=== PATIENT | female | born 1960 | race Caucasian/White ===

== ENCOUNTER 2017-08-01 10:51 | Emergency (ER) | payer SELFPAY ==
[~2017-08-01] VITALS: Ht 152.4 cm; Wt 68.0 kg
[2017-08-01 10:54] VITALS: BP 167/79; PULSE 74; RESP 16; TEMP 97.8; O2SAT 98
--- NOTE | 2017-08-01 11:09 | PD ---
HPI Chief Complaint: Neuro Symptoms/ Deficits Time Seen by Provider: 11:04 Travel History International Travel<30 days: No Contact w/Intl Traveler<30days: No Traveled to known affect area: No History of Present Illness HPI Patient presents with reports of intermittent bilateral hand and feet numbness for approximately 6 months. States she is being worked up for MS. Reports difficulty with balance. Reports a fall yesterday with right shoulder and cervical spine pain. Reports abrasions to her right neck. Unable to recall tetanus. Denies any new chest pain shortness of breath urinary or bowel symptoms. PFSH Social History Tobacco Use: No Allergies-Medications (Allergen,Severity, Reaction): Coded Allergies: Sulfa (Sulfonamide Antibiotics) (Verified Allergy, Unknown, 08/01/17) Reported Meds & Prescriptions Reported Meds & Active Scripts Active No Active Prescriptions or Reported Medications Review of Systems General / Constitutional: No: Fever Eyes: No: Visual changes HENT: No: Headaches Cardiovascular: No: Chest Pain or Discomfort Respiratory: No: Shortness of Breath Gastrointestinal: No: Abdominal Pain Genitourinary: No: Dysuria Musculoskeletal: Positive: Arthralgias, Limited ROM, Pain Skin: No Rash Neurologic: No: Weakness Psychiatric: No: Depression Endocrine: No: Polydipsia Hematologic/Lymphatic: No: Easy Bruising Physical Exam Narrative GENERAL: Well-nourished, well-developed patient. SKIN: Focused skin assessment warm/dry. HEAD: Normocephalic. EYES: No scleral icterus. No injection or drainage. NECK: Supple, trachea midline. No JVD or lymphadenopathy. Right sided abrasions noted healing well without cellulitic change CARDIOVASCULAR: Regular rate and rhythm without murmurs, gallops, or rubs. RESPIRATORY: Breath sounds equal bilaterally. No accessory muscle use. GASTROINTESTINAL: Abdomen soft, non-tender, nondistended. MUSCULOSKELETAL: No cyanosis, or edema. BACK: Nontender without obvious deformity. No CVA tenderness. Examination the cervical spine reveals midline tenderness with bilateral paraspinous pain good range of motion Examination the right shoulder reveals good range of motion with discomfort Data Data Last Documented VS Vital Signs Date Time Temp Pulse Resp B/P (MAP) Pulse Ox O2 Delivery O2 Flow Rate FiO2 08/01/17 10:54 97.8 74 16 167/79 (108) 98 Orders Orders Tetanus/Diphtheria Tox Adult (Tetanus/Di (08/01/17 11:15) Spine, Cervical - Ltd (Ap&Lat) (08/01/17 ) Shoulder, Limited(2vws) (08/01/17 ) Splint Or Brace Apply/Monitor (08/01/17 11:55) MDM Medical Decision Making Medical Screen Exam Complete: Yes Emergency Medical Condition: Yes Differential Diagnosis Right shoulder fracture, right shoulder strain, cervical spine strain, cervical spine fracture, skin abrasions Narrative Course Assessment and plan discussed with patient at bedside. Patient received tetanus. Last 72 hours Impressions Shoulder X-Ray 08/01/17 0000 Signed Impressions: Service Date/Time: Tuesday, August 01, 2017 11:16 - CONCLUSION: Unremarkable limited right shoulder series. Ajay Alanis MD Cervical Spine X-Ray 08/01/17 0000 Signed Impressions: Service Date/Time: Tuesday, August 01, 2017 11:16 - CONCLUSION: 1. Moderate severity bony degenerative findings of the cervical spine. 2. No evidence of fracture. Ajay Alanis MD Diagnosis Primary Impression: Right shoulder strain Qualified Codes: S46.911A - Strain of unspecified muscle, fascia and tendon at shoulder and upper arm level, right arm, initial encounter Additional Impression: Degenerative joint disease of cervical spine Qualified Codes: M47.812 - Spondylosis without myelopathy or radiculopathy, cervical region Patient Instructions: General Instructions Additional Instructions: Slinging right arm for comfort, gentle range of motion exercises for cervical spine and right shoulder, pain medication as prescribed, encourage nonsteroidal anti-inflammatories, encouraged general wound care for abrasions on her right neck. Encouraged follow-up with PCP. Encouraged to use a cane regularly. Return to emergency with any onset of new symptoms. Med/Other Pt SpecificInfo: Prescription(s) given Scripts Hydrocodone-Acetaminophen (Hydrocodone-Acetaminophen) 5-325 mg Tab 1 TAB PO Q6H Y for PAIN, #15 TAB 0 Refills Prov: Modesto Pang MD 08/01/17 Disposition: 01 DISCHARGE HOME Condition: Good Modesto Pang MD Aug 01, 2017 11:09
[2017-08-01] MEDS ORDERED: TETANUS/DIPHTHERIA TOXOID ADULT 0.5 ML VIAL IM ONE (11:15)
--- NOTE | 2017-08-01 11:38 | RADRPT ---
EXAM DATE/TIME: 08/01/2017 11:16 [facility] COMPARISON: No previous studies available for comparison. INDICATIONS : Fell, complains of neck pain. MEDICAL HISTORY : None. SURGICAL HISTORY : None. ENCOUNTER: Initial ACUITY: 4 - 6 days PAIN SCORE: 6/10 LOCATION: Right cervical spine FINDINGS: 4 views of the cervical spine. Moderate-sized endplate osteophytes and moderate severity intervertebr al disc narrowing at C5-6. Moderate-sized endplate osteophytes and mild intervertebral disc narrowing at C6-7. Bone alignment within normal limits. No evidence of fracture. CONCLUSION: 1. Moderate severity bony degenerative findings of the cervical spine. 2. No evidence of fracture. Ajay Alanis MD on August 01, 2017 at 11:35 Board Certified Radiologist. This report was verified electronically.
--- NOTE | 2017-08-01 11:39 | RADRPT ---
EXAM DATE/TIME: 08/01/2017 11:16 [facility] COMPARISON: No previous studies available for comparison. INDICATIONS : Fell, complains of right shoulder pain. MEDICAL HISTORY : None. SURGICAL HISTORY : None. ENCOUNTER: Initial ACUITY: 4 - 6 days PAIN SCORE: 6/10 LOCATION: Right shoulder FINDINGS: 2 views right shoulder. No evidence of bowel dilatation. No free air or free fluid. Appendix within n ormal limits. Glenohumeral joint and acromioclavicular joint within normal limits. CONCLUSION: Unremarkable limited right shoulder series. Ajay Alanis MD on August 01, 2017 at 11:37 Board Certified Radiologist. This report was verified electronically.
[2017-08-01 11:56] VITALS: BP 118/73; PULSE 78; RESP 18; O2SAT 98
[2017-08-01] MEDS ORDERED: HYDR-3516 PO (11:56)
== END 2017-08-01 12:24 | disposition home or self-care (01) ==
LOC: PHED 10:51
DX: S46.911A Strain of unspecified muscle, fascia and tendon at shoulder and upper arm level, right arm, initial encounter (principal); M47.812 Spondylosis without myelopathy or radiculopathy, cervical region; W19.XXXA Unspecified fall, initial encounter
CPT/HCPCS: 72040; 73030; 90471; 90714

== ENCOUNTER 2017-12-28 09:37 | Observation (INO) | payer OTHER ==
[~2017-12-28] VITALS: Ht 152.4 cm; Wt 65.0 kg
[~2017-12-28 09:37] MED LIST: HYDR-3516 PO
[2017-12-28 09:44] VITALS: BP 172/75; PULSE 64; RESP 15; TEMP 99; O2SAT 100
[2017-12-28 10:28] VITALS: BP 150/65; PULSE 64
--- NOTE | 2017-12-28 10:41 | PD ---
HPI Chief Complaint: Cardiac Complaint Time Seen by Provider: 10:26 Travel History International Travel<30 days: No Contact w/Intl Traveler<30days: No Traveled to known affect area: No History of Present Illness HPI The patient was seen and examined in the presence of the nurse. This patient complains of chest pain. She had 3 separate spells today. They last about 5 minutes and resolved. They are not exertional. She describes a central sternal tightness. Also discomfort that radiates toward the back. No injury. No fever or cough. Symptom severity is moderate during the spell that resolves on its own. No alleviating factors. No exacerbating factors. No personal history of cardiac disease. She reports having a negative stress test 6 years ago but no workup since. [facility] Past Medical History Hypertension: Yes (NO MEDS) Musculoskeletal: Yes (PAIN IN HANDS AND FEET FOR TWO YEARS) ?: Not Past Surgical History Genitourinary Surgery: Yes (BLADDER SLING REMOVED) Other Surgery: Yes (BREAST IMPLANTS, IR BLOOD CLOT REMOVAL) Social History Alcohol Use: Yes (FEW X WEEKLY) Tobacco Use: Yes (1/2 PPD) Substance Use: No Allergies-Medications (Allergen,Severity, Reaction): Coded Allergies: Sulfa (Sulfonamide Antibiotics) (Verified Allergy, Unknown, 12/28/17) Reported Meds & Prescriptions Reported Meds & Active Scripts Active No Active Prescriptions or Reported Medications Review of Systems General / Constitutional: No: Fever Eyes: No: Visual changes HENT: No: Headaches Cardiovascular: Positive: Chest Pain or Discomfort Respiratory: No: Shortness of Breath Gastrointestinal: No: Abdominal Pain Genitourinary: No: Dysuria Musculoskeletal: No: Pain Skin: No Rash Neurologic: No: Weakness Psychiatric: No: Depression Endocrine: No: Polydipsia Hematologic/Lymphatic: No: Easy Bruising Physical Exam Narrative GENERAL: Well-nourished, well-developed patient in no apparent distress. SKIN: Focused skin assessment reveals no rash and nodules. Skin is Warm and dry. HEAD: Atraumatic. Normocephalic. EYES: Pupils equal and round. No scleral icterus. No injection or drainage. ENT: No nasal bleeding or discharge. Mucous membranes pink and moist. NECK: Trachea midline. No JVD. CARDIOVASCULAR: Regular rate and rhythm. No murmur appreciated. RESPIRATORY: No accessory muscle use. Clear to auscultation. Breath sounds equal bilaterally. GASTROINTESTINAL: Abdomen soft, non-tender, nondistended. Hepatic and splenic margins not palpable. MUSCULOSKELETAL: No obvious deformities. No clubbing. No cyanosis. No edema. NEUROLOGICAL: Awake and alert. No obvious cranial nerve deficits. Motor grossly within normal limits. Normal speech. PSYCHIATRIC: Appropriate mood and affect; insight and judgment normal. Data Data Last Documented VS Vital Signs Date Time Temp Pulse Resp B/P (MAP) Pulse Ox O2 Delivery O2 Flow Rate FiO2 12/28/17 10:28 64 150/65 (93) 12/28/17 09:44 99.0 15 100 Room Air Orders Orders Electrocardiogram (12/28/17 10:35) Basic Metabolic Panel (Bmp) (12/28/17 10:35) Ckmb (Isoenzyme) Profile (12/28/17 10:35) Complete Blood Count With Diff (12/28/17 10:35) Magnesium (Mg) (12/28/17 10:35) Prothrombin Time / Inr (Pt) (12/28/17 10:35) Act Partial Throm Time (Ptt) (12/28/17 10:35) Troponin I (12/28/17 10:35) Chest, Single Ap (12/28/17 10:35) Ecg Monitoring (12/28/17 10:35) Iv Access Insert/Monitor (12/28/17 10:35) Oximetry (12/28/17 10:35) Aspirin (Aspirin) (12/28/17 10:45) Sodium Chloride 0.9% Flush (Ns Flush) (12/28/17 10:45) Labs Laboratory Tests Test 12/28/17 10:40 White Blood Count 9.2 TH/MM3 Red Blood Count 4.97 MIL/MM3 Hemoglobin 15.5 GM/DL Hematocrit 45.7 % Mean Corpuscular Volume 92.0 FL Mean Corpuscular Hemoglobin 31.2 PG Mean Corpuscular Hemoglobin Concent 33.9 % Red Cell Distribution Width 13.0 % Platelet Count 242 TH/MM3 Mean Platelet Volume 9.3 FL Neutrophils (%) (Auto) 60.3 % Lymphocytes (%) (Auto) 29.6 % Monocytes (%) (Auto) 5.7 % Eosinophils (%) (Auto) 3.3 % Basophils (%) (Auto) 1.1 % Neutrophils # (Auto) 5.6 TH/MM3 Lymphocytes # (Auto) 2.7 TH/MM3 Monocytes # (Auto) 0.5 TH/MM3 Eosinophils # (Auto) 0.3 TH/MM3 Basophils # (Auto) 0.1 TH/MM3 CBC Comment DIFF FINAL Differential Comment Prothrombin Time 9.7 SEC Prothromb Time International Ratio 1.0 RATIO Activated Partial Thromboplast Time 24.8 SEC Blood Urea Nitrogen 14 MG/DL Creatinine 0.82 MG/DL Random Glucose 90 MG/DL Calcium Level 9.4 MG/DL Magnesium Level 2.1 MG/DL Sodium Level 140 MEQ/L Potassium Level 4.5 MEQ/L Chloride Level 109 MEQ/L Carbon Dioxide Level 26.4 MEQ/L Anion Gap 5 MEQ/L Estimat Glomerular Filtration Rate 72 ML/MIN Total Creatine Kinase 94 U/L Troponin I LESS THAN 0.02 NG/ML MDM Medical Decision Making Medical Screen Exam Complete: Yes Emergency Medical Condition: Yes Medical Record Reviewed: Yes Differential Diagnosis Differential diagnosis includes MD, angina, pericarditis, pleurisy, GERD, anxiety. Narrative Course I have reviewed the patient's electronic medical record. I reviewed her EKG which is normal I reviewed her chest x-ray which is normal Labs sent I gave her an aspirin Patient has multiple risk factors for CAD including hypertension and cigarette smoking and family history of CAD. I am planning to make her 23 hour observation in the chest pain center to rule out cardiac cause of her symptoms. She is agreeable. CK is normal Troponin is normal CBC and metabolic studies are normal Diagnosis Primary Impression: Chest pain Qualified Codes: R07.9 - Chest pain, unspecified Additional Impressions: Hypertension Qualified Codes: I10 - Essential (primary) hypertension Smoker Admitting Information Admitting Physician Requests: Observation Scripts No Active Prescriptions or Reported Igor Maciel MD Dec 28, 2017 10:41
[2017-12-28] MEDS ORDERED: SODIUM CHLORIDE 0.9% FLUSH 10 ML FLUSH IVF PRN (10:45)
[2017-12-28] MEDS ORDERED: ASPIRIN 325 MG TAB PO ONE (10:45)
--- NOTE | 2017-12-28 11:03 | RADRPT ---
EXAM DATE/TIME: 12/28/2017 10:40 [facility] COMPARISON: No previous studies available for comparison. INDICATIONS : Chest pain and coughing. MEDICAL HISTORY : Hypertension. History of blood clots. SURGICAL HISTORY : Breast implants. ENCOUNTER: Initial ACUITY: 1 day PAIN SCORE: 0/10 LOCATION: Bilateral chest FINDINGS: A single view of the chest demonstrates the lungs to be symmetrically aerated without evidence of mas s, infiltrate or effusion. The cardiomediastinal contours are unremarkable. Osseous structures are intact. CONCLUSION: No acute disease. Wilton Monteiro MD FACR on December 28, 2017 at 11:01 Board Certified Radiologist. This report was verified electronically.
[2017-12-28 11:18] LABS: AUTOMATED NEUTROPHIL # 5.6 TH/MM3 (1.8-7.7); BASOPHIL # 0.1 TH/MM3 (0-0.2); BASOPHIL % 1.1 % (0.0-2.0); EOSINOPHIL # 0.3 TH/MM3 (0-0.4); EOSINOPHIL % 3.3 % (0.0-4.0); HEMATOCRIT 45.7 % (35.0-46.0); HEMOGLOBIN 15.5 GM/DL (11.6-15.3); LYMPH % 29.6 % (9.0-44.0); LYMPHOCYTE # 2.7 TH/MM3 (1.0-4.8); MEAN CORPUSCULAR HEMOGLOBIN 31.2 PG (27.0-34.0); MEAN CORPUSCULAR HGB CONC 33.9 % (32.0-36.0); MEAN PLATELET VOLUME 9.3 FL (7.0-11.0); MONO % 5.7 % (0.0-8.0); MONOCYTE # 0.5 TH/MM3 (0-0.9); NEUT % 60.3 % (16.0-70.0); PLATELET COUNT 242 TH/MM3 (150-450); PROTHROMBIN TIME - PATIENT 9.7 SEC (9.8-11.6); RED BLOOD COUNT 4.97 MIL/MM3 (4.00-5.30); WHITE BLOOD COUNT 9.2 TH/MM3 (4.0-11.0)
[2017-12-28 11:48] LABS: BICARBONATE 26.4 MEQ/L (21.0-32.0); BLOOD UREA NITROGEN 14 MG/DL (7-18); CALCIUM 9.4 MG/DL (8.5-10.1); CHLORIDE 109 MEQ/L (98-107); CREATININE 0.82 MG/DL (0.50-1.00); GLOMERULAR FILTRATION RATE 72 ML/MIN (>89); GLUCOSE,RANDOM 90 MG/DL (74-106); MAGNESIUM 2.1 MG/DL (1.5-2.5); SODIUM (NA) 140 MEQ/L (136-145); TROPONIN I LESS THAN 0.02 NG/ML (0.02-0.05)
[2017-12-28] MEDS ORDERED: ONDANSETRON HCL 4 MG/2 ML VIAL IV PUSH PRN (13:00)
[2017-12-28] MEDS ORDERED: ACETAMINOPHEN 500 MG CPLT PO PRN (13:00)
[2017-12-28] MEDS ORDERED: NITROGLYCERIN 0.4 MG SL 25 TABS/BTL SL PRN (13:00)
[2017-12-28 13:28] VITALS: O2SAT 100
--- NOTE | 2017-12-28 14:06 | HHI.HP ---
HPI Primary Care Physician Rosalie Ott MD Chief Complaint Chest pain History of Present Illness 56-year-old female with history of DVT's and current smoker presents emergency room for further evaluation of chest pain. Onset 0800, while sitting at desk. Location substernal. Characterized as squeezing. Radiation between shoulder blades. Duration 2-3 minutes. Discomfort came on quick, resolved gradually. Associated symptoms of shortness of breath, diaphoresis, and it hurt to take a deep breath and to move. Denied nausea or vomiting. Second episode occurred 0845am, nonexertional, reporting second episode not as severe as first. No known precipitating or relieving factors. Denies any current chest discomfort. Endorses similar chest pain episode August 2017, while visiting daughter in [place]. Duration of chest pain approx. 20-25 minutes. Pain was severe enough, EMS was called. ER recommended staying overnight for further evaluation. She declined due to lack of medical insurance. No further chest apin episodes until this morning. Review of Systems General: Fatigue x1 week, otherwise as been in her general state of health. No weakness, fever, chills, recent illness, or change in appetite. History of x2 DVT approximately 10 years ago. One DVT in abdomen after bladder sling removal and second DVT in lungs after breast implants removed. Declines ever having further testing to determine cause of blood clots, states "it was recommended but I declined testing." HEENT: x2 months of sore throat, right ear pain, and hoarseness in morning or after long periods of vocal strain. Awaiting ENT referral. No TRIMBLE, no vision changes, no nasal congestion or drainage CV: As stated above. No current chest pain or pressure. No palpitations, intermittent leg pain, or dizziness. RESP: No SOB, cough, wheeze, asthma, or recent aspiratory infection. Current smoker. GI: No nausea, vomiting, bowel changes, diarrhea, constipation, pain, distention , melena, or blood in the stool. No unintentional weight gain or weight loss : No dysuria, urgency, frequency, or history of kidney stones EXT: No lower leg edema, no paraesthesias. Unsure, but thinks she has been told she has peripheral vascular disease. No history of lower extremities DVT. MS: No discomfort, recent injury, or change in ROM NEURO: No change in memory, difficulty with balance, LOC, motor/sensory deficits PSYCH: No anxiety, depression, suicidal ideation SKIN: No rashes, no concerning lesions Past Family Social History Allergies: Coded Allergies: Sulfa (Sulfonamide Antibiotics) (Verified Allergy, Unknown, 12/28/17) Past Medical History DVT, PE (DVT and PE occurred at different times), remote history of hypertension (states only being on medication for a short time) Past Surgical History Bladder sling removal, Breast implants removed, interventional radiology thrombectomy Reported Medications Reported Meds & Active Scripts Active No Active Prescriptions or Reported Medications Active Ordered Medications Current Medications Medications (Trade) Dose Ordered Sig/Osmin Route Start Time Stop Time Status Last Admin (NS Flush) 2 ml UNSCH PRN IVF 12/28/17 10:45 (NS Flush) 2 ml BID IV FLUSH 12/28/17 21:00 UNV (Tylenol) 500 mg Q4H PRN PO 12/28/17 13:00 UNV (Zofran Inj) 4 mg Q6H PRN IV PUSH 12/28/17 13:00 UNV (Nitrostat Sl) 0.4 mg Q5M PRN SL 12/28/17 13:00 UNV (Aspirin) 325 mg DAILY PO 12/29/17 09:00 UNV Family History Mother first [place] age 51. age 67 from CHF. Social History No known hypertension, hyperlipidemia, diabetes, coronary artery disease. Current smoker one half pack daily. Pack year history between 21-42 years. Few alcohol drinks weekly. Denies any illegal drug use. . 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 Past cardiac testing Remote exercise cardiac testing 5 years ago part of routine annual. Physical Exam Vital Signs Vital Signs Date Time Temp Pulse Resp B/P (MAP) Pulse Ox O2 Delivery O2 Flow Rate FiO2 12/28/17 13:28 100 21 12/28/17 10:28 64 150/65 (93) 12/28/17 09:44 99.0 64 15 172/75 (107) 100 Room Air 12/28/17 09:44 Room Air Physical Exam GENERAL: Alert WN, WD, NAD, pleasant, female HEAD: NC, AT EYES: Sclera clear, conjunctiva without injection, pupils equal and round ENT: Mucous membranes pink and moist CV: RRR, without murmur, rub, gallop, no JVD, S1-S2 no S3-S4. No carotid or femoral bruits. RESP: Clear lungs throughout bilateral, no crackles, wheeze, rhonchi, symmetrical chest rise, nonlabored, able to speak in full sentences ABD: Soft, NT, ND, no masses, positive bowel tones BACK: No scoliosis EXT: Pulses +2x4, no dependent edema MS: Normal tone x4 extremities, nontender, no obvious deformities, full range of motion NEURO: CN II through CN XII grossly intact, motor strength 5/5 PSYCH: A+O x3, pleasant affect, appropriate speech, mood, insight and judgment SKIN: Normal turgor, normal texture, no lesions, no rashes Laboratory Laboratory Tests Test 12/28/17 10:40 White Blood Count 9.2 Red Blood Count 4.97 Hemoglobin 15.5 Hematocrit 45.7 Mean Corpuscular Volume 92.0 Mean Corpuscular Hemoglobin 31.2 Mean Corpuscular Hemoglobin Concent 33.9 Red Cell Distribution Width 13.0 Platelet Count 242 Mean Platelet Volume 9.3 Neutrophils (%) (Auto) 60.3 Lymphocytes (%) (Auto) 29.6 Monocytes (%) (Auto) 5.7 Eosinophils (%) (Auto) 3.3 Basophils (%) (Auto) 1.1 Neutrophils # (Auto) 5.6 Lymphocytes # (Auto) 2.7 Monocytes # (Auto) 0.5 Eosinophils # (Auto) 0.3 Basophils # (Auto) 0.1 CBC Comment DIFF FINAL Differential Comment Prothrombin Time 9.7 Prothromb Time International Ratio 1.0 Activated Partial Thromboplast Time 24.8 Blood Urea Nitrogen 14 Creatinine 0.82 Random Glucose 90 Calcium Level 9.4 Magnesium Level 2.1 Sodium Level 140 Potassium Level 4.5 Chloride Level 109 Carbon Dioxide Level 26.4 Anion Gap 5 Estimat Glomerular Filtration Rate 72 Total Creatine Kinase 94 Troponin I LESS THAN 0.02 Result Diagram: 12/28/17 1040 12/28/17 1040 Imaging Last 48 hours Impressions Chest X-Ray 12/28/17 1035 Signed Impressions: Service Date/Time: Thursday, December 28, 2017 10:40 - CONCLUSION: No acute disease. Wilton Monteiro MD FACR Course EKG Normal sinus rhythm, no ST-T segment changes Caprini VTE Risk Assessment Caprini VTE Risk Assessment: No/Low Risk (score <= 1) Caprini Risk Assessment Model Point Value = 1 Point Value = 2 Point Value = 3 Point Value = 5 Age 41-60 Minor surgery BMI > 25 kg/m2 Swollen legs Varicose veins or History of unexplained or recurrent spontaneous Oral contraceptives or hormone replacement Sepsis (< 1 month) Serious lung disease, including pneumonia (< 1 month) Abnormal pulmonary function Acute myocardial infarction Congestive heart failure (< 1 month) History of inflammatory bowel disease Medical patient at bed rest Age 61-74 Arthroscopic surgery Major open surgery (> 45 min) Laparoscopic surgery (> 45 min) Malignancy Confined to bed (> 72 hours) Immobilizing plaster cast Central venous access Age >= 75 History of VTE Family history of VTE Factor V Leiden Prothrombin [id number] Lupus anticoagulant Anticardiolipin antibodies Elevated serum homocysteine Heparin-induced thrombocytopenia Other congenital or acquired thrombophilia Stroke (< 1 month) Elective arthroplasty Hip, pelvis, or leg fracture Acute spinal cord injury (< 1 month) Prophylaxis Regimen Total Risk Factor Score Risk Level Prophylaxis Regimen 0-1 Low Early ambulation 2 Moderate Order ONE of the following: *Sequential Compression Device (SCD) *Heparin 5000 units SQ BID 3-4 Higher Order ONE of the following medications: *Heparin 5000 units SQ TID *Enoxaparin/Lovenox 40 mg SQ daily (WT < 150 kg, CrCl > 30 mL/min) *Enoxaparin/Lovenox 30 mg SQ daily (WT < 150 kg, CrCl > 10-29 mL/min) *Enoxaparin/Lovenox 30 mg SQ BID (WT < 150 kg, CrCl > 30 mL/min) AND/OR *Sequential Compression Device (SCD) 5 or more Highest Order ONE of the following medications: *Heparin 5000 units SQ TID (Preferred with Epidurals) *Enoxaparin/Lovenox 40 mg SQ daily (WT < 150 kg, CrCl > 30 mL/min) *Enoxaparin/Lovenox 30 mg SQ daily (WT < 150 kg, CrCl > 10-29 mL/min) *Enoxaparin/Lovenox 30 mg SQ BID (WT < 150 kg, CrCl > 30 mL/min) AND *Sequential Compression Device (SCD) Assessment and Plan Assessment and Plan #1 Chest pain-minute chest pain center. Rule out with 3 sets of EKGs, cardiac events, and monitor on telemetry. Will be seen and evaluated by Dr. Nigel Jordan. Obtain d-dimer due to history of DVTs. Discussed possible cardiac testing after being ruled out for PE and ACS. Further cardiac testing will be determined after evaluation by Dr. Jordan. Patient agreeable to plan of care. #2 Tobacco use-encouraged and stressed the importance of tobacco cessation. Instructed to quit smoking. #3 Hypertension-mildly elevated in ER, continue to monitor, consider amlodipine 5mg depending on blood pressure trends #4 History of DVT and PE-encouraged considering further testing to determine cause for past abdominal DVT and PE occurring during 2 separate episodes. Smoking cessation reinforced. Roxanne Jacques Dec 28, 2017 14:06
[2017-12-28 14:26] LABS: TROPONIN I LESS THAN 0.02 NG/ML (0.02-0.05)
[2017-12-28 14:41] VITALS: BP 139/71; PULSE 56; RESP 18; TEMP 98.1; O2SAT 98
[2017-12-28 16:42] LABS: TROPONIN I LESS THAN 0.02 NG/ML (0.02-0.05)
[2017-12-28 20:01] VITALS: PULSE 75
[2017-12-28 21:43] VITALS: BP 108/53; PULSE 70; RESP 18; TEMP 98.1; O2SAT 95
[2017-12-28] MEDS: SODIUM CHLORIDE 0.9% FLUSH 10 ML FLUSH IV FLUSH SCH (23:37)
[2017-12-29 00:06] VITALS: PULSE 70
[2017-12-29 01:24] VITALS: BP 111/53; PULSE 70; RESP 18; TEMP 97.4; O2SAT 96
[2017-12-29 02:55] VITALS: PULSE 62
[2017-12-29 04:02] VITALS: BP 117/66; PULSE 61; RESP 18; TEMP 97.8; O2SAT 96
[2017-12-29 07:42] VITALS: BP 123/68; PULSE 70; RESP 16; TEMP 97.6; O2SAT 98
[2017-12-29 08:00] VITALS: PULSE 70
[2017-12-29] MEDS: SODIUM CHLORIDE 0.9% FLUSH 10 ML FLUSH IV FLUSH SCH (08:29)
[2017-12-29] MEDS ORDERED: ASPIRIN 325 MG TAB PO SCH (09:00)
[2017-12-29] MEDS ORDERED: REGADENOSON INJ 0.4 MG/5 ML SYR ONE (09:15)
--- NOTE | 2017-12-29 10:53 | RADRPT ---
EXAM DATE/TIME: 12/29/2017 09:20 [facility] COMPARISON: No previous studies available for comparison. INDICATIONS : Substernal chest pain radiating to the back. Angina. DOSE: 26.9 mCi Tc99m Myoview at stress. 8.7 mCi Tc99m Myoview at rest. 0.4 mg Lexiscan STRESS SYMPTOMS: Dizziness, facial flush, dyspnea, stomach pain and headache. EJECTION FRACTION: 64% MEDICAL HISTORY : Smoker. SURGICAL HISTORY : Breast augmentation. ENCOUNTER: Initial ACUITY: 1 day PAIN SCALE: 7/10 LOCATION: Substernal chest TECHNIQUE: The patient underwent pharmacologic stress with infusion of prescribed dose. Continuous ECG tracing was monitored during stress. Gated SPECT imaging was performed after stress and conventional SPECT i maging was performed at rest. The examination was performed on a SPECT/CT scanner, both attenuation and non-corrected datasets were reviewed. FINDINGS: DISTRIBUTION: The maximum perfused segment at stress is in the inferior wall. PERFUSION STUDY: The pattern of perfusion at stress is within normal limits. GATED STUDY: There is intact wall motion and thickening without hypokinetic or dyskinetic segments. CONCLUSION: 1. No stress-induced ischemia. 2. Intact wall motion with EF of 64%. RISK CATEGORY: Low (<1% Annual Mortality Rate) Aníbal Srivastava MD on December 29, 2017 at 10:43 Board Certified Radiologist. This report was verified electronically.
--- NOTE | 2017-12-29 11:00 | HHI.DCPOC ---
Discharge Care Plan Diagnosis: (1) Chest pain (2) Hypertension Goals to Promote Your Health * To prevent worsening of your condition and complications * To maintain your health at the optimal level Directions to Meet Your Goals Take your medications as prescribed Follow your dietary instruction Follow activity as directed Keep your appointments as scheduled Take your immunizations and boosters as scheduled If your symptoms worsen call your PCP, if no PCP go to Urgent Care Center or Emergency Room Smoking is Dangerous to Your Health. Avoid second hand smoke Call the 24-hour hour crisis hotline for domestic abuse at Deyvi Garcia Dec 29, 2017 11:00
--- NOTE | 2017-12-29 17:37 | TR ---
Date Performed: 12/29/2017 Time Performed: 09:47:06 DOCTOR: Isidra Paulino DRUG LIST: CLINICAL HISTORY: REASON FOR TEST: CHEST PAIN REASON FOR ENDING: OBSERVATION: CONCLUSION: COMMENTS: Lexiscan stress test was performed under standard four minute protocol. Radionuclide was injected one minute prior to ending the test. No electrocardiographic abormalities were present t o suggest ischemia. Nuclear imaging and interpretation are pending.
--- NOTE | 2017-12-29 17:41 | EKG ---
Date Performed: 12/28/2017 Time Performed: 15:51:15 PTAGE: 57 years EKG: SINUS BRADYCARDIA BORDERLINE LEFT AXIS DEVIATION BORDERLINE ECG Since PREVIOUS TRACING , no significant change noted PREVIOUS TRACIN12/28/2017 13.40 DOCTOR: Isidra Paulino Interpretating Date/Time 12/29/2017 17:40:06
--- NOTE | 2017-12-29 17:48 | EKG ---
Date Performed: 12/28/2017 Time Performed: 09:46:12 PTAGE: 57 years EKG: Sinus rhythm BORDERLINE LEFT AXIS DEVIATION BORDERLINE ECG NO PREVIOUS TRACING DOCTOR: Isidra Paulino Interpretating Date/Time 12/29/2017 17:47:19
--- NOTE | 2017-12-29 17:51 | EKG ---
Date Performed: 12/28/2017 Time Performed: 13:40:28 PTAGE: 57 years EKG: SINUS BRADYCARDIA MARKED LEFT AXIS DEVIATION ABNORMAL ECG Since PREVIOUS TRACING , no significant change noted PREVIOUS TRACIN12/28/2017 09.46 DOCTOR: Isidra Paulino Interpretating Date/Time 12/29/2017 17:49:48
== END 2017-12-29 13:28 | disposition home or self-care (01) ==
LOC: NEPC 09:37 → NEDA 12:52 → NEPFCDU 13:56
PROVIDERS: ADMIT Internal Medicine Cardiovascular Disease; ATTEND Internal Medicine Cardiovascular Disease
DX: R07.89 Other chest pain (principal); I10 Essential (primary) hypertension; R00.1 Bradycardia, unspecified; R94.31 Abnormal electrocardiogram [ECG] [EKG]; F17.200 Nicotine dependence, unspecified, uncomplicated; Z86.711 Personal history of pulmonary embolism; Z86.718 Personal history of other venous thrombosis and embolism; Z82.49 Family history of ischemic heart disease and other diseases of the circulatory system
CPT/HCPCS: 71045; 78452; 80048; 82550; 83690; 83735; 84484; 85025; 85379; 85610; 85730; 93005; 93017; 99285; A9502; G0378; J2785